=== PATIENT | female | born 1990 | race Caucasian/White ===

== ENCOUNTER 2023-04-16 14:45 | Outpatient (CLI) | payer OTHER ==
--- NOTE | 2023-04-16 16:27 | XRAY Report ---
PROCEDURE: Ankle 3 View LT INDICATIONS: LEFT ANKLE PAIN TECHNIQUE: 3 views of the ankle were acquired. COMPARISON: None. FINDINGS: Bones: No fractures or dislocations. Ankle mortise is normally aligned on weightbearing view. No s uspicious bony lesions. Soft tissues: No tibiotalar joint effusion. Achilles tendon appears normal. Tiny plantar calcaneal enthesophyte. IMPRESSION: No acute bony abnormality. If there is high clinical suspicion for a radiographically occult fracture , consider repeat imaging in 7-10 days versus cross-sectional imaging. Reviewed by: Juanito Null MD on 04/16/2023 4:26 PM PST Approved by: Juanito Null MD on 04/16/2023 4:26 PM PST Station ID: [id number]
== END 2023-04-16 15:00 | disposition home or self-care (01) ==
LOC: DI.N 14:45
PROVIDERS: ATTEND Family Medicine
DX: M25.572 Pain in left ankle and joints of left foot (principal)